=== PATIENT | male | born 1940 | race Caucasian/White ===

== ENCOUNTER → 2018-05-24 13:25 | Outpatient (REF) | payer OTHER, SELFPAY | LOC: LAB 13:25 | PROVIDERS: Visit Provider Otolaryngology | DX: L29.8 Other pruritus (principal); H92.01 Otalgia, right ear; H60.311 Diffuse otitis externa, right ear; H91.8X3 Other specified hearing loss, bilateral; H61.91 Disorder of right external ear, unspecified | CPT/HCPCS: 87070; 87077; 87186; 87205 ==

== ENCOUNTER → 2024-08-16 08:37 | Outpatient (CLI) | payer OTHER, SELFPAY ==
--- NOTE | 2024-08-16 11:16 | ST.SWALLOW ---
Visit Care Team Role Provider Type Boo Lares MD Attending Provider Physician Referring Provider Specialty: General Surgery Address: [address] [facility], [place], [address] Email: Modified Barium Swallow Study [employer] Modified Barium Swallow Study Start: 08/16/24 08:43 Freq: Status: Active Protocol: Document 08/16/24 09:50 LNK (Rec: 08/16/24 11:16 [id number]) Modified Barium Swallow Study Total Time Visit Start Time 09:00 Visit Stop Time 09:45 Total Visit Minutes [address] Lares Reason for Referral dysphagia Setting Setting Outpatient Care Patient Information Identification Type Name,Date of Patient History Pt was seen for Modified Barium Swallow Study with c/o difficulty swallowing. It doesn't go down, per pt report. Pt noted he will throw up bubbly phlegm or food (undigested) at times when he isn't able to swallow completely. Pt has a PMH that includes a hiatal hernia as well as a CVA 2 years ago. Following his CVA, he was seen by HH for speech therapy but not swallow therapy. His noted that following the CVA he has ongoing slurred speech and memory problems. Pt and his reported that pt is a slow eater who takes tiny bites. Subjective Observations *Pt was accompanied by his , who helped with providing pt's dysphagia history *Speech is mildly dysarthria re: CVA 2 years ago *Pt is ILIAMNA *Pt was seated in the fluoroscopy chair with directions and procedures described for him. He indicated he understood and agreed to proceed. Patient Positioning Position View Lat-A/P Imaging Lateral View Textures Administered Trials Presented Thin Liquid via Spoon (IDDSI 0 ),Thin Liquid via Cup (IDDSI 0 ),Extremely Thick Liquid via Spoon (IDDSI 4),Regular (IDDSI 7) Barium Tablet Yes The IDDSI Framework Protocol: IDDSI.1 Oral Impairment Source: The Modified Barium Swallow Impairment Profile (MBSImP??) Lip Closure No labial escape Tongue Control During Bolus Hold Cohesive bolus between tongue to palatal seal Bolus Preparation/Mastication Timely & efficient chewing & mashing Bolus Transport/Lingual Motion Brisk tongue motion Oral Residue Complete oral clearance Initiation of Pharyngeal Swallow Bolus head at posterior laryngeal surface of epiglottis Additional Oral Impairment Observations *OME and DKS were observed to be WNL. *Dentition natural and in good hygiene *Mastication observed with rotary chew pattern. *Good bolus formation, control and AP transition. Pharyngeal Impairment Source: The Modified Barium Swallow Impairment Profile (MBSImP??) Soft Palate Elevation No bolus between soft palate & pharyngeal wall Laryngeal Elevation Comp.sup.move.thyroid cart.w/ comp.approx.arytenoids to epiglot petiole Anterior Hyoid Excursion No anterior movement Epiglottic Movement Partial inversion Laryngeal Vestibular Closure Complete; no air/contrast in laryngeal vestibule Pharyngeal Stripping Wave Present - diminished Pharyngoesophageal Segment Opening Complete distention & complete duration; no obstruction of flow Tongue Base Retraction Wide column of contrast/air betwn tongue base & post. pharyngeal wall Pharyngeal Residue Collection of residue within/ on pharyngeal structures Location Diffuse (more than 3 structures) Additional Pharyngeal Impairment *Weak tongue base retraction Observations *Weak contraction of the inferior pharyngeal constrictor *Adequate laryngeal elevation; no anterior movement of the hyoid *Inconsistent epiglottal inversion partial inversion observed with small boluses; full inversion with large boluses *No laryngeal penetration or tracheal aspiration observed *Diffuse pharyngeal residue observed post swallow A/P View Textures Administered Trials Presented Thin Liquid via Spoon (IDDSI 0 ) The IDDSI Framework Protocol: IDDSI.1 A/P View Observations Esophageal Clearance Upright Position Esophageal retention w/ regtrograde flow below pharyngoesoph segment Esophageal Function Slowed Clearing,Poor Motility, Reverse Peristalsis,Stasis, Narrowing Additional A-P Observations Thin liquid and calibrated barium tablet trials conducted *Following position change from lateral to AP, contrast from previous trials remained within the esophagus *Water wash partially cleared esophageal residue *With thin barium, narrowing with corkscrew appearance was observed mid-esophagus *Retro flow was observed with esophageal narrowing *hiatal hernia noted *Barium tablet cleared to the LES and remained in that position for approximately 3 minutes with several swallows of water by the pt. The MBSS ended at that point with the tablet remaining in the esophagus near the LES/hiatal hernia Clinical Impressions Dysphagia Type Pharyngeal,Esophageal Findings Please see Pharyngeal Phase and AP observation summaries for details Recommend GI referral for further assessment ST/swallow therapy recommended for base of tongue exercises Rehabilitation Potential Good Patient Appropriate for Therapy Yes Recommendations Diet Comments No diet change recommended Aspiration Precautions Recommended Precautions Upright at 90 Degrees, Alternate Liquids/Solids Treatment Plan Recommended Referrals GI Consult
== END ==
LOC: RAD 08:41
PROVIDERS: Referring Provider Surgery; Visit Provider Surgery
DX: R13.10 Dysphagia, unspecified (principal)
CPT/HCPCS: 74230; 92611